=== PATIENT | female | born 1980 | race Caucasian/White ===

== ENCOUNTER 2025-08-23 11:12 | Outpatient (CLI) | payer BC | END 2025-08-23 11:13 | disposition home or self-care (01) | LOC: MRI 11:12 | PROVIDERS: ATTEND Family Medicine Sports Medicine | DX: M25.852 Other specified joint disorders, left hip (principal); S73.102A Unspecified sprain of left hip, initial encounter; S43.432A Superior glenoid labrum lesion of left shoulder, initial encounter ==